=== PATIENT | female | born 1965 | race Caucasian/White ===

== ENCOUNTER → 2017-04-28 | Day surgery (SDC) | payer OTHER ==
[~2017-04-28] MED LIST: ACETAMINOPHEN 1000 MG/100 ML 100 ML IV ONE; ATENOLOL50 MG PO; BACITRACIN 50,000 UNIT VIAL ONE; BACLOFEN10 MG PO; CEFAZOLIN SOD 1 GM VIAL ONE; CITALOPRAM HBR20 MG PO; DEXAMETHASONE SOD PHOS INJ 4 MG/ML VIAL ONE; EPHEDRINE SULFATE INJ 50 MG/10 ML SYR ONE; FENTANYL CITRATE/PF 100MCG/2 ML INJ ONE; GABAPENTIN100 MG PO; GABAPENTIN300 MG PO; HYDROCHLOROTHIA25 MG PO; KEFLEX500 MG PO; KETOROLAC TROMETHAMINE 30 MG/ML VIAL ONE; LEVOTHYROXINE100 MC1 PO; LIDOCAINE HCL 2% LOCAL INJ 5 ML SDV VIAL INJ ONE; MIDAZOLAM HCL 2 MG/2 ML VIAL ONE; MIRTAZAPINE15 MG PO; ONDANSETRON HCL INJ 2 MG/ML VIAL ONE; PROPOFOL IV EMULSION 10 MG/ML 20 ML VIAL ONE; SEVOFLURANE INHAL SOLN 250 ML PEN BTL ONE; SODIUM CHLORIDE 0.9% 250ML 250 ML ONE; TYLENOL WITH C1 EACH PO
--- NOTE | 2017-04-29 09:19 | Operative Report ---
DATE OF PROCEDURE: April 28, 2017 PREOPERATIVE DIAGNOSES 1. Bilateral breast cancer. 2. Implant displacement and disproportion of reconstructed breast, left side. 3. Staged reconstruction of right breast, status post latissimus dorsi muscle flap reconstruction. POSTOPERATIVE DIAGNOSES 1. Bilateral breast cancer. 2. Implant displacement and disproportion of reconstructed breast, left side. 3. Staged reconstruction of right breast, status post latissimus dorsi muscle flap reconstruction. PROCEDURES 1. Delayed placement of right breast tissue flitch hanger with allograft. 2. Open capsulectomy, left breast with placement of allograft and implant exchange, and revision of reconstructed left breast. ANESTHESIA: General. 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 Several years ago, she underwent bilateral mastectomies with attempt at reconstruction. Her postoperative course was complicated and protracted, and resulted in almost complete absence of the right soft tissues over the chest wall, and unsatisfactory reconstruction of the left breast. The patient approximately 6 months ago underwent reconstruction of the soft tissue of the right breast utilizing a pedicled latissimus dorsi flap from the skin island. The patient has healed satisfactorily, and now presents for placement of a tissue flitch hanger in order to achieve optimal symmetry. In addition, the left breast has significant contour deformities consistent with capsular contracture and implant displacement. The risks, benefits and alternatives of treatment were discussed with the patient. She is prepared to undergo the procedures outlined. DETAILS OF PROCEDURE: The patient was marked preoperatively in the holding area. She was brought to the operating theater, and after the induction of adequate general anesthesia, she was prepped and draped in a supine position. A Wall catheter was placed. Mini compression boots were placed. A time out was performed. The procedure was begun by incising along the inferior border of the skin island from the latissimus dorsi flap on the right side and extending it medially on to her original mastectomy scar. The incision was then deepened through the subcutaneous tissues using the electrocautery. At this point, the latissimus dorsi muscle was identified, and the lower border of it was transected utilizing the electrocautery. This gave access to what would have been subpectoral space. The chest wall was identified. At this point, release of the internal structures to enlarge the pocket was performed utilizing the electrocautery. Hemostasis was made absolute using the electrocautery. Once the latissimus dorsi flap had been elevated sufficiently off the chest wall to allow placement of the allograft and tissue flitch hanger, a trial fit with sizers was performed, and a 250 mL sizer fit without significant tension. The sizer was removed and the pocket was irrigated and checked for hemostasis once again. The allograft was a 3-D scaffolding premolded type material, and it was oriented correctly in the lower hemisphere of the right chest. Using the suture tabs, it was secured to the chest wall using 2-0 PDS in an interrupted horizontal mattress fashion. At this point, a 400 mL moderate height tissue flitch hanger was prepared per display screen fabricator's specification. The lot number and serial number of flitch hanger are located in the patient's chart. At this point, the flitch hanger was oriented correctly after removing all the air, and then placed within the allograft scaffolding and into the breast pocket. Using direct vision, a 21-gauge infusion needle was placed through the port, and 250 mL of sterile injectable saline was added to the flitch hanger. At this point, the pocket was irrigated with antibiotic containing solution. The soft tissue layers were closed as follows: The inferior border of the latissimus muscle was brought over the flitch hanger and sutured to the superior rim of the allograft utilizing 2-0 PDS in an interrupted horizontal mattress fashion. The deep dermis was approximated with 3-0 Monocryl in an interrupted buried fashion. The skin was approximated with 4-0 running subcuticular Monocryl. Attention was then turned to the reconstruction of the left breast. The previous mastectomy and reconstructive incision was marked out. The incision was then made through the skin and subcutaneous tissues. All bleeding was controlled using electrocautery. The soft tissues were noted to be very, very thin with no significant subcutaneous tissue, and no apparent deep muscular tissue. The incision then gave way through the capsule, and the implant was identified. It was noted that the implant pocket was quite large, and the implant was displaced along the lateral chest wall. The implant was removed. It was noted to be a 400 mL gel filled implant. This was removed and sent for ID only. At this point, the pocket was noted to be quite contracted medially and quite extensive laterally. Capsulectomy was performed in an open fashion utilizing the electrocautery in order to allow the pocket to be moved more medially and more in line with an anatomic appearing breast. Once the capsule had been removed medially and superiorly, hemostasis was made absolute using the electrocautery. At this point, it was felt that the lateral pocket should be closed off to prevent the lateral displacement of the implant. This was performed utilizing interrupted 2-0 PDS sutures from the inside of the flap to the lateral chest wall. At this point, the 3-D formed allograft was prepared per display screen fabricator's specification. It was placed in the lower hemispheric portion of the left breast pocket. It was oriented properly and then the suture tabs were secured to the chest wall utilizing 2-0 PDS in an interrupted horizontal mattress fashion. A new 400 mL moderate high profile gel filled implant was prepared per display screen fabricator's specifications. The lot number and serial number located within the patient's chart. The pocket was irrigated with antibiotic containing solution and then dilute Betadine solution. The implant was then placed within the 3-D scaffolding allograft and noted to lie medially and without significant lateral displacement. The superior portion of the remaining capsule was then sutured to the allograft utilizing 2-0 PDS in an interrupted fashion. At this point, the skin and subcutaneous tissues were closed over the capsule and allograft utilizing 3-0 Monocryl in an interrupted buried fashion followed by 4-0 Monocryl running subcuticular fashion. Steri-Strips were applied to the incisions. The estimated blood loss for the procedure was approximately 75-100 mL for the total procedure. Sterile dressings were applied. The patient was placed in a postoperative gently compressing type bra, which maintained both the flitch hanger and the implant in their medial and inferior locations. The patient was returned to recovery in satisfactory condition, and then discharged with a postoperative instruction sheet, as well as a followup appointment. Job#: [id number] REENA
== END | disposition home or self-care (01) ==
LOC: OR 05:43
PROVIDERS: ATTEND Plastic Surgery
DX: C50.912 Malignant neoplasm of unspecified site of left female breast (principal); C50.911 Malignant neoplasm of unspecified site of right female breast; T85.42XA Displacement of breast prosthesis and implant, initial encounter; N65.1 Disproportion of reconstructed breast; I10 Essential (primary) hypertension; Q96.9 Turner's syndrome, unspecified; R00.1 Bradycardia, unspecified; Z01.810 Encounter for preprocedural cardiovascular examination
CPT/HCPCS: 15777; 19340; 19357; 19371; 93005; 99070; C1789; J0690; J1100; J1885; J2001; J2250; J2405; J7050

== ENCOUNTER → 2017-06-28 | Day surgery (SDC) | payer OTHER ==
[2017-06-27 15:26] LABS: ANION GAP 13.1 mmol/L (8-16); BLOOD UREA NITROGEN 19 mg/dL (7-26); BUN/CREATININE RATIO 26 (6-25); CALCIUM 9.5 mg/dL (8.4-10.2); CARBON DIOXIDE 29 mmol/L (22-29); CHLORIDE 99 mmol/L (98-107); CREATININE, SERUM 0.73 mg/dL (0.57-1.11); EST GLOMERULAR FILTRATION RATE > 60 ML/MIN (60-); GLUCOSE 93 mg/dL (74-118); POTASSIUM 3.1 mmol/L (3.5-5.1); SODIUM 138 mmol/L (136-145)
[~2017-06-28] MED LIST changes: -FENTANYL CITRATE/PF 100MCG/2 ML INJ ONE; -KETOROLAC TROMETHAMINE 30 MG/ML VIAL ONE; +MIRTAZAPINE15 M1 PO; +MUPIROCIN 2% OINT 22 GM TUBE ONE; -SODIUM CHLORIDE 0.9% 250ML 250 ML ONE
--- NOTE | 2017-06-28 12:34 | Operative Report ---
DATE OF PROCEDURE: June 28, 2017 PREOPERATIVE DIAGNOSES 1. History of malignant neoplasm, right breast. 2. Acquired absence, right breast and nipple. 3. Staged reconstruction of right breast. 4. Capsular contracture, right breast. POSTOPERATIVE DIAGNOSES 1. History of malignant neoplasm, right breast. 2. Acquired absence, right breast and nipple. 3. Staged reconstruction of right breast. 4. Capsular contracture, right breast. PROCEDURES 1. Removal of right breast tissue dehydrator operator. 2. Open periprosthetic capsulectomy, right breast. 3. Delayed insertion of permanent prosthesis, right breast. ANESTHESIA: General. HISTORY: The patient is a 52-year-old female who has a personal history of malignant neoplasm of the right breast and has had staged reconstruction of the right breast. Most recently, she underwent placement of allograft and a tissue dehydrator operator. After expansion of the tissue dehydrator operator, the patient now presents for removal of the right breast tissue dehydrator operator and placement of the permanent prosthesis. The risks, benefits and alternatives of treatment were discussed with the patient, and she is prepared to undergo the procedures outlined. DETAILS OF PROCEDURE: Patient had signed the [employer] consent form for the aforementioned procedure. She was marked preoperatively in the holding area in the upright position. She was brought to the operating theater. After the induction of adequate general anesthesia, she was prepped and draped in a supine position and a time out was performed. The procedure was begun by marking out the superior border of the latissimus dorsi skin island flap and extending that both medially and laterally. The incision was then made through the skin and subcutaneous tissues. All bleeding was controlled using electrocautery. The previous surgical incision was excised through the skin and subcutaneous tissue, and it was removed. Using electrocautery, the incision was deepened through the subcutaneous tissue until the latissimus muscle was identified. The junction between the latissimus muscle and the allograft was identified, and this was using the electrocautery. Immediately underneath this layer, a tissue dehydrator operator was identified. There was some folding of the tissue dehydrator operator, and this has caused significant capsular contracture in the superior hemispheric portion of the right breast reconstruction. The interval between the allograft and the latissimus was divided further both medially and laterally. Then the dehydrator operator was removed without difficulty. The pocket was inspected. There were no signs of purulence and no signs of any devitalized material. The procedure was begun by using electrocautery and excising the contracted portion of the capsule which had formed in the superior hemisphere of the right breast reconstruction. The incisions were made through the capsule into the latissimus dorsi muscle, and then the contracted portions of the capsule were then removed in their entirety. The wound was irrigated with bacteriostatic saline, and hemostasis was made absolute using electrocautery. At this point, a 250-mL sizer was placed in the right breast pocket, and the patient was then sat up and assessed. The symmetry between the right and left sides was noted to be satisfactory and the 250-mL sizer adequately corrected the patient's need for reconstruction and symmetry. Patient was made supine. The sizer was then removed, and the pocket was inspected once again for hemostasis, which was made absolute using electrocautery. The pocket was then irrigated with an antibiotic-containing solution, and then this was followed by a Betadine-containing solution. The 250-mL implant was prepared per director of strategic sourcing's specifications. Lot number and serial number are located within the patient's chart. The implant was placed in the right breast pocket, and the interval between the latissimus muscle and the allograft was then closed using 3-0 Monocryl in an interrupted fashion. At this point, the deep dermis was approximated with 4-0 Monocryl in an interrupted buried fashion, and finally the epidermis was closed using 5-0 Monocryl running subcuticular stitch. Steri-Strips were applied to the incision. Dressings were applied over the Steri-Strips. The patient was placed in a postoperative gently compressing surgical bra. The estimated blood loss for the procedure was approximately 50 mL. She tolerated the procedure well. She was brought to the recovery room in satisfactory condition and discharged with a postoperative instruction sheet as well as a followup appointment. Job#: [id number]
== END | disposition home or self-care (01) ==
LOC: OR 07:20
PROVIDERS: ATTEND Plastic Surgery
CPT/HCPCS: 36415; 80048; J0690; J1100; J2001; J2250; J2405

== ENCOUNTER → 2018-05-12 | Outpatient (CLI) | payer MEDICARE ==
[~2018-05-12] MED LIST changes: -ACETAMINOPHEN 1000 MG/100 ML 100 ML IV ONE; -BACITRACIN 50,000 UNIT VIAL ONE; -CEFAZOLIN SOD 1 GM VIAL ONE; -DEXAMETHASONE SOD PHOS INJ 4 MG/ML VIAL ONE; -EPHEDRINE SULFATE INJ 50 MG/10 ML SYR ONE; +FENOFIBRATE145 MG PO; -LIDOCAINE HCL 2% LOCAL INJ 5 ML SDV VIAL INJ ONE; -MIDAZOLAM HCL 2 MG/2 ML VIAL ONE; -MUPIROCIN 2% OINT 22 GM TUBE ONE; -ONDANSETRON HCL INJ 2 MG/ML VIAL ONE; -PROPOFOL IV EMULSION 10 MG/ML 20 ML VIAL ONE; -SEVOFLURANE INHAL SOLN 250 ML PEN BTL ONE
== END ==
LOC: CARD 09:54
PROVIDERS: ATTEND Family Medicine
DX: R09.89 Other specified symptoms and signs involving the circulatory and respiratory systems (principal)
CPT/HCPCS: 93880; 93925

== ENCOUNTER → 2019-03-23 | Outpatient (CLI) | payer MEDICARE ==
--- NOTE | 2019-03-23 11:19 | Diagnostic Imaging Report ---
Exam: Bone mineral density study. History: 54-year-old female. Comparison: None Discussion: Evaluation of the left hip and lumbar spine was performed utilizing DEXA Hologic bone densitometer. The study is technically adequate. The patient's fracture risk is compared to an age-matched control. Left femoral neck bone mineral density: 0.557 g/cm2, T-score is -2.6, Z-score is -1.7. No previous comparison. Lumbar spine total bone mineral density: 0.831 gm/cm2, T-score is -2, Z-score is -1. No previous comparison. Impression: Bone mineralization by WHO Classification using T score is osteoporosis, fracture risk is high. <T score: NL = -1 or higher Osteopenia = -1 to -2.5 Osteoporosis = -2.5 or lower Z score: < - 1.5 concerning for path> Recommendations: Medical evaluation for secondary causes of low bone mineral density may be appropriate. Correlate clinically for the necessity and timing of the next bone mineral density study. National Osteoporosis Foundation recommendations: Initiate therapy to reduce fracture risk in postmenopausal women with -BMD t-scores below -2 by central DXA with no risk factors -BMD t-scores below -1.5 by central DXA with one or more risk factors (first deg relative with hip fracture, prior personal fracture, low body weight, smoking) -A prior vertebral or hip fracture AACE (Clinical Endocrinology) recommends treating the following: Postmenopausal women who have osteoporosis as diagnosed by fragility fractures or t scores -2.5 or below Postmenopausal women who have risk factors (including fh of hip fracture, low body weight, smoking, risk of falling, high bone turnover, advancing age) and borderline low BMD T scores of -1.5 or below Adequate intake of calcium (at least 1200mg/day) and vitamin D (400-800 IU/day). Regular weight bearing and muscle - strengthening exercises Avoid smoking and excessive alcohol Signed by: Patricio Pitts on 03/23/2019 11:16 AM
== END ==
LOC: DX 09:37
PROVIDERS: ATTEND Family Medicine
DX: Z13.820 Encounter for screening for osteoporosis (principal)
CPT/HCPCS: 77080

== ENCOUNTER 2019-06-08 15:50 | Emergency (ER) | payer MEDICARE ==
[~2019-06-08] VITALS: Ht 144.8 cm; Wt 61.2 kg
--- NOTE | 2019-06-08 17:34 | Diagnostic Imaging Report ---
EXAMINATION: CHEST SINGLE (PORTABLE) INDICATION: ^Y ^ERMD ORDER ^[id number] ^1715 ^Y COMPARISON: 10/14/2017 FINDINGS: AP view TUBES and LINES: None. LUNGS: Lungs are well inflated. There is no evidence of pneumonia or pulmonary edema. PLEURA: No pleural effusion or pneumothorax. HEART AND MEDIASTINUM: The cardiomediastinal silhouette is unremarkable. BONES AND SOFT TISSUES: No acute osseous lesion. Thoracolumbar scoliosis. Suspected bilateral breast implants. UPPER ABDOMEN: No free air under the diaphragm. IMPRESSION: No acute thoracic abnormality. Signed by: Dr. Barry Hillman MD on 06/08/2019 5:31 PM
--- OUTSIDE RECORDS SUMMARY | 2019-06-08 17:51 | XMS REPORT | Summary of Care ---
Author Author [facility] Organization [facility] Address Unknown Phone Unavailable Care Team Providers Care Dump Worker Name Role Phone Edgar Corona Andre PCP Reason for Visit * Reason Comments Procedure Encounter Details Care Team Description Date Type Department Criselda Maria PA-C [address] [facility] [address] [place], [place] [id number] Procedure 10/17/2018 Office Visit [facility] Plastic Surgery [address] [facility] [place] [address] Allergies No Known Allergiesdocumented as of this encounter (statuses as of 10/17/2018) Medications End Date Status Medication Sig Dispensed Refills Start Date Active diphenoxylate-atropine Take 5 mL by 0 (LOMOTIL) 2.5-0.025 mouth 4 times MG/5ML liquid daily as needed. Active atenolol (TENORMIN) 25 MG Take 25 mg by 0 tablet mouth daily. Active pentoxifylline (TRENTAL) Take 400 mg 0 400 MG CR tablet by mouth 3 times daily (with meals). Active Baclofen (LIORESAL) 10 by 0 MG/5ML injection Intrathecal route once. Active Levothyroxine Sodium 100 Take by 0 MCG CAPS mouth. Active mirtazapine (REMERON) 15 Take 15 mg by 0 MG tablet mouth nightly. Active amoxicillin (AMOXIL) 875 Take 875 mg 0 MG tablet by mouth two times daily. Active Potassium Chloride 10 Inject into 0 MEQ/5ML SOSY the vein. Active fenofibrate (LOFIBRA) 160 Take 160 mg 0 MG tablet by mouth daily. Active mometasone (ELOCON) 0.1 % Apply 0 cream topically daily. Active doxycycline (VIBRAMYCIN) Take 100 mg 0 100 MG capsule by mouth two times daily. Active gabapentin (NEURONTIN) Take 300 mg 0 300 MG capsule by mouth 3 times daily. Active gabapentin (NEURONTIN) Take 100 mg 0 100 MG capsule by mouth 3 times daily. Active hydrochlorothiazide Take 50 mg by 0 (HYDRODIURIL) 50 MG mouth daily. tablet Active fenofibrate micronized Take 134 mg 0 (LOFIBRA) 134 MG capsule by mouth every morning (before breakfast). Active acetaminophen-codeine Take 1 Tab by 0 (TYLENOL #3) 300-30 MG mouth every 4 per tablet hours as needed for Pain. Active citalopram (CELEXA) 20 MG Take 20 mg by 0 tablet mouth daily. Active atenolol (TENORMIN) 50 MG Take 50 mg by 0 tablet mouth daily. Active hydrocodone-acetaminophen Take 1 Tab by 0 (NORCO) 5-325 mg tablet mouth every 4 hours as needed for Pain. Active Clotrimazole 1 % CREA Place 0 vaginally. Active Baclofen (LIORESAL) 10 by 0 MG/20ML injection Intrathecal route once. Active cephALEXin (KEFLEX) 500 Take 500 mg 0 MG capsule by mouth four times daily. Active sulfamethoxazole-trimetho Take 1 Tab by 0 prim (BACTRIM DS, SEPTRA mouth two DS) 800-160 MG per tablet times daily. Active Permethrin-Nit Remover by 0 (NIX COMPLETE LICE COMBINATION TREATMENT) 1 & 0.25 % KIT route. documented as of this encounter (statuses as of 10/17/2018) Active Problems No known active problemsdocumented as of this encounter (statuses as of 10/17/2018) Social History Date Tobacco Use Types Packs/Day Years Used Never Smoker Smokeless Tobacco: Never Used Drinks/Week oz/Week Comments Alcohol Use Never Alcohol Habits Answer Date Recorded How often do you have a drink containing alcohol? Never 09/11/2018 How many drinks containing alcohol do you have on Not asked a typical day when you are drinking? How often do you have six or more drinks on one Not asked occasion? Sex Assigned at Date Recorded Not on file Industry Job Start Date Occupation Not on file Not on file Not on file Travel End Travel History Travel Start No recent travel history available. documented as of this encounter Last Filed Vital Signs Reading Time Taken Comments Vital Sign 98/65 10/17/2018 11:14 AM CDT Blood Pressure 62 10/17/2018 11:14 AM CDT Pulse - - Temperature - - Respiratory Rate - - Oxygen Saturation - - Inhaled Oxygen Concentration 49.9 kg (110 lb) 10/17/2018 11:14 AM CDT Weight 144.8 cm (4' 9") 10/17/2018 11:14 AM CDT Height 23.8 10/17/2018 11:14 AM CDT Body Mass Index documented in this encounter Progress Notes * Criselda Maria PA-C - 10/17/2018 11:00 AM CDT Kalani Morrison Moon 53 y.o. who presents for psot surgical follow up. She under went bilateral nipple reconstruction and R breast revision, implant exchange Wit h Dr Elkins on 09/25/18. She has been doing well. She states that she is very h appy with her results. She would like to have nipple tattoos done. Her mother deyanira you noticed a rash on her back. She denies any pain or itching in area of rash. ROS CONSTITUTIONAL: negative CARDIOVASCULAR: positive for none RESPIRATORY: negative GASTROINTESTINAL: negative bilateral nipples healing, R breast incision intact: no erythema or s/s infectio n noted Quarter sized erythematous area medial to R back incision with some overlying cr ust Plan: Nipple protector at all times when wearing bra to help preserve projection Ok for tattoo in 3 months Call clinic with questions or concerns Use eczema cream on rash to see if it improves Seen with Dr Elkins I appreciate the opportunity to be involved in the care of this patient. Criselda Maria PA-C documented in this encounter Plan of Treatment Care Team Description Date Type Specialty Colin Elkins MD [address] [place] [address] [phone] 10/23/2018 Office Visit Plastic Surgery Criselda Maria PA-C [address] [place] [address] [phone] 12/20/2018 Office Visit Plastic Surgery Health Maintenance Due Date Last Done Comments COLON CANCER SCREENIN1966 COLONOSCOPY MAMMOGRAM ANNUAL 1966 MEDICARE AWV 1966 TETANUS SHOT (ADULT) 1981 HIV SCREENING 02/04/1984 CERVICAL CANCER SCREENING 1987 3 YEAR FOLLOW UP FLU VACCINE > 6 MONTHS 09/14/2018 documented as of this encounter Results Not on filedocumented in this encounter Visit Diagnoses Diagnosis Malignant neoplasm of female breast, unspecified estrogen receptor status, unspecified laterality, unspecified site of breast - Primary documented in this encounter Insurance Type Payer Benefit Subscriber ID Effective Phone Address Plan / Dates Group Medicare [employer] MED[employer]ARE xxxxxxxx 2018-P [id number] [place] [address] documented as of this encounter
--- OUTSIDE RECORDS SUMMARY | 2019-06-08 17:51 | XMS REPORT | Summary of Care ---
Author Author [facility] Address Unknown Phone Unavailable Care Team Providers Care Plastics Nurse Name Role Phone Cj Edgar Powell PCP Reason for Visit * Reason Comments Procedure Tattoo * Outpatient Surgery (Routine) Referred By Contact Referred To Contact Status Reason Specialty Diagnoses / Procedures Criselda Maria PA-C [address] [facility] [address] [place] [address] Criselda Maria PA-C [facility] [address] [place] [address] Closed Plastic Surgery Diagnoses Malignant neoplasm of unspecified site of unspecified female breast Tattoo P rocedures [place] CORRECT SKIN COLR DEFCT ADDN 20SQ CM TATTOO 30 Encounter Details Care Team Description Date Type Department Criselda Maria PA-C [address] [facility] [address] [place] [address] [phone] Procedure (Tattoo) 12/20/2018 Office Visit [facility] [address] [facility] [address] [place] [phone] Allergies No Known Allergiesdocumented as of this encounter (statuses as of 12/20/2018) Medications End Date Status Medication Sig Dispensed [...] capsule by mouth four times daily. Active Permethrin-Nit Remover by 0 (NIX COMPLETE LICE COMBINATION TREATMENT) 1 & 0.25 % KIT route. 12/20/2018 Discontinued sulfamethoxazole-trimetho Take 1 Tab by 0 prim (BACTRIM DS, SEPTRA mouth two DS) 800-160 MG per tablet times daily. documented as of this encounter (statuses as of 12/20/2018) Active Problems No known active problemsdocumented as of this encounter (statuses as of 12/20/2018) Social History Date Tobacco Use Types Packs/Day [...] Signs Reading Time Taken Comments Vital Sign 87/46 12/20/2018 11:26 AM [employer]SCHOOL Blood Pressure 59 12/20/2018 11:26 AM [employer]SCHOOL Pulse - - Temperature - - Respiratory Rate - - Oxygen Saturation - - Inhaled Oxygen Concentration 49.9 kg (110 lb) 12/20/2018 11:26 AM AFTERSCHOOL Weight 144.8 cm (4' 9") 12/20/2018 11:26 AM AFTERSCHOOL Height 23.8 12/20/2018 11:26 AM AFTERSCHOOL Body Mass Index documented in this encounter Progress Notes * Criselda Maria PA-C - 12/20/2018 11:00 AM AFTERSCHOOL Ms. Kalani Trivedi is a 53 y.o. female who previously underwent Bilateral implant breast reconstruction. Her nipple reconstruction was done on 09/25/18. She now presents for nipple-areolar complex micropigmentation. Consent: The risks and benefits of the procedure were discussed in detail inclu ding pain, bleeding, infection, scarring, asymmetry, color mismatch, fading of c olor, and need for further procedures. The patient understood, signed the conse nt, and wished to proceed. Procedure: Bilateral NAC Micropigmentation; 16 cm bilaterally Local Anesthesia:9 cc of 1% lidocaine with epinephrine Pigment Color: Flesh 6 (x2), Flesh 10 mixed for areola, Medium brown for shadow PE: The patient's scars are well-healed, the implants are intact. The pigment colors were offered to the patient and compared to her skin tone. T ogether with the patient, pigment color was chosen. At this time, the markings for the new areolae were drawn based upon the size, shape and location preferenc e of the patient - 4 cm x 4 cm bilaterally. The patient was given a mirror to e valuate the markings; once she agreed, the micropigmentation procedure began. M icropigmentation was performed in the standard fashion without complications. T he patient was provided a mirror throughout the procedure to evaluate the size a nd shape of the areola; at the end of the procedure the patient was happy with t he results. The areas were dressed with adaptic, bacitracin and 4x4s. Post-procedure instructions were given: 1. Apply antibiotic ointment to the area twice a day for seven days. 2. For the first 5 days, or until a scab has formed, Do not scrub, wash with soa p, or allow a hard shower stream to fall on the treated area. Simply allow water to run over it gently and gently pat dry with a soft towel. 3. Do not pick the scab loose, this will remove the pigmentation. 4. To avoid irritation from bras or undergarments, continue to apply the dressin g until the area is completely healed. 5. You may resume normal activities. However, avoid activities that may cause ru bbing or friction to the treated area. Follow-up for second-stage micropigmentation in 6 weeks. CPT Code(s):73122 and 92241 RSCHOOL documented in this encounter Plan of Treatment Care Team Description Date Type Specialty Criselda Maria PA-C [address] [facility] [address] [place] [address] [phone] 01/31/2019 Office Visit Plastic Surgery Health Maintenance Due [...] status, unspecified laterality, unspecified site of breast (HCCode) - Primary documented in this encounter Insurance Type Payer Benefit Subscriber ID Effective Phone Address Plan / Dates Group Medicare [employer] MEDICARE xxxxxxxx 2018-P [address] HMO resent [id number] [place] [address] documented as of this encounter
--- OUTSIDE RECORDS SUMMARY | 2019-06-08 17:51 | XMS REPORT | Summary of Care ---
Author Author [facility] Organization [facility] Address Unknown Phone Unavailable Care Team Providers Care Pasteuriser Operator Name Role Phone CjEdgar decker Andre PCP Reason for Visit * Reason Comments Procedure Tattoo * Outpatient Surgery (Routine) Referred By Contact Referred To Contact Status Reason Specialty Diagnoses / Procedures Colin Elkins MD [address] [facility] [address] [place] [address] Criselda Maria PA-C [address] [facility] [address] [place] [address] Authorization Plastic Surgery Diagnoses Not Needed Malignant neoplasm of unspecified site of unspecified female breast 2nd Tattoo 2nd Tattoo 2nd Tattoo 2nd Tattoo 2nd Tattoo P rocedures [place] CORRECT SKIN COLR DEFCT ADDN 20SQ CM TATTOO 30 Encounter Details Care Team Description Date Type Department Criselda Maria PA-C [address] [facility] [address] [place] [address] [phone] Procedure (Tattoo) 04/11/2019 Office Visit [facility] Surgery [address] [facility] [address] [place] [phone] Allergies No Known Allergiesdocumented as of this encounter (statuses as of 04/11/2019) Medications End Date Status Medication Sig Dispensed [...] as of this encounter (statuses as of 04/11/2019) Active Problems No known active problemsdocumented as of this encounter (statuses as of 04/11/2019) Social History Date Tobacco Use Types Packs/Day [...] Reading Time Taken Comments Vital Sign 98/65 04/11/2019 3:07 PM ATTORNEY Blood Pressure 63 04/11/2019 3:07 PM ATTORNEY Pulse - - Temperature - - Respiratory Rate - - Oxygen Saturation - - Inhaled Oxygen Concentration 49.9 kg (110 lb) 04/11/2019 3:07 PM ATTORNEY Weight 144.8 cm (4' 9") 04/11/2019 3:07 PM ATTORNEY Height 23.8 04/11/2019 3:07 PM ATTORNEY Body Mass Index documented in this encounter Progress Notes * Criselda Maria PA-C - 04/11/2019 3:00 PM ATTORNEY Ms. Kalani Trivedi is a 54 y.o. female who previously underwent Bilateral implant [...] Bilateral NAC Micropigmentation; 16 cm bilaterally Local Anesthesia:8 cc of 1% lidocaine with epinephrine Pigment Color: Flesh 6, Flesh 9 mixed for areola, Medium brown for shadow PE: The patient's scars are well-healed, the implants are intact. She wanted her tattoos to be bigger and slightly darker than they were. The colo r was adjusted from Flesh 10 to Flesh 9 and only 1 Flesh 6. At this time, the ma rkings for the new areolae were drawn based upon the size, shape and location pr eference of the patient - 4.5 cm x 4.5 cm bilaterally. The patient was given a mirror to evaluate the markings; once she agreed, the micropigmentation procedur e began. Micropigmentation was performed in the standard fashion without compli cations. The patient was provided a mirror throughout the procedure to evaluate the size and shape of the areola; at the end of the procedure the patient was h appy with the results. The areas were dressed with adaptic, bacitracin and 4x4s . Post-procedure instructions were given: 1. Apply antibiotic [...] friction to the treated area. Follow-up for touch up tattoo DAMION and Dr. Elkins in 3 months CPT Code(s):65249 and 37571 RNEY documented in this encounter Plan of Treatment Health Maintenance Due Date Last Done Comments COLON CANCER SCREENIN1966 COLONOSCOPY MAMMOGRAM ANNUAL 1966 TETANUS SHOT (ADULT) 1981 HIV SCREENING 02/04/1984 CERVICAL CANCER SCREENING 1987 3 YEAR FOLLOW UP MEDICARE AWV (Initial) 04/14/2016 FLU VACCINE > 6 MONTHS 09/14/2018 documented [...] [employer] MEDICARE xxxxxxxx 2018-P [address] O resent [id number] - [employer] [place] [address] documented as of this encounter
--- OUTSIDE RECORDS SUMMARY | 2019-06-08 17:51 | XMS REPORT | Summary of Care ---
Author Author [facility] Organization [facility] Address Unknown Phone Unavailable Care Team Providers Care Veterinary Nurse Name Role Phone Edgar Corona Andre PCP Reason for Visit * Reason Comments Post-op Follow-up Encounter Details Care Team Description Date Type Department Colin Elkins MD [address] [facility] [address] [place] [address] [phone] Post-op Follow-up 09/11/2018 Office Visit [facility] Department of Surgery [address] [facility], [facility] [address] [place] [phone] Allergies No Known Allergiesdocumented as of this encounter (statuses as of 09/24/2018) Medications End Date Status Medication Sig Dispensed [...] as of this encounter (statuses as of 09/24/2018) Active Problems Not on filedocumented as of this encounter (statuses as of 09/24/2018) Social History Date Tobacco Use Types Packs/Day [...] Signs Reading Time Taken Comments Vital Sign 93/57 09/11/2018 8:04 AM CDT Blood Pressure 64 09/11/2018 8:04 AM CDT Pulse - - Temperature - - Respiratory Rate - - Oxygen Saturation - - Inhaled Oxygen Concentration 49.9 kg (110 lb) 09/11/2018 8:04 AM CDT Weight 144.8 cm (4' 9") 09/11/2018 8:04 AM CDT Height 23.8 09/11/2018 8:04 AM CDT Body Mass Index documented in this encounter Progress Notes * Colin Elkins MD - 09/11/2018 8:00 AM CDT Subjective: 53F wheelchair bound nonsmoker with history of breast cancer. She underwent laine ateral mastectomy and immediate breast reconstruction with implants. She did no t have chemo or radiotherapy. She had a right breast implant loss due to infect ion. She subsequently underwent an LD flap with replacement of the implant in 2 018 (implant was 250cc smooth round moderate plus). She states that her left br east is larger than the right, however she prefers the size of the implant on th e left. She presents today to discuss her upcoming surgery ROS CONSTITUTIONAL: negative CARDIOVASCULAR: positive for none RESPIRATORY: negative GASTROINTESTINAL: negative Objective: Vital Signs Height: 4' 9" (144.8 cm) Weight - Scale: 110 lb (49.9 kg) Pulse: 64 BP: 93/57 BREASTS: Bilateral skin sparing mastectomies with implant based breast reconstruction, le ft breast is larger than right, previous bilateral nipple reconstruction with si gnificant loss of projection LYMPH NODE BASINS: No lymphadenopathy Assessment: 52F nonsmoker s/p nilateral skin sparing mastectomies and breast reconstruction with right LD with implant and left implant. She prefers the size of the left b reast and desires the right side to match the left. She is also interested in r evision of bilateral nipple reconstruction. Operative plan for implant exchange of right breast implant for larger size to match left implant, as well as bilat eral nipple reconstruction Plan: 1. Operative for implant exchange of right breast implant for larger size to ma tch left implant, as well as bilateral nipple reconstruction. Surgery scheduled for September 25. 2. Risks, benefits and alternatives of the procedure discussed including but no t limited to infection, bleeding, seroma, flap loss, loss of nipple projection, capsular contracture, implant loss, fat necrosis, wound healing complications, a symmetry, scarring (both normal and pathologic), deformity, poor aesthetic resul t, need for revisional surgery, ALCL, sensory loss, functional loss, implant rup ture, injury to adjacent structures, loss of projection, flap loss. Informed con sent obtained. I spent a total of 15 minutes of face -to-face time with the patient in this enc ounter of which greater than 50% was spent in direct counseling, including antic ipated results, possible complications and postoperative recovery. Colin Elkins MD MSc FACS Attending Physician Plastic Surgery [facility] documented in this encounter Plan of Treatment Care Team Description Date Type Specialty Colin Elkins MD [address] [facility] [address] [place] [address] [phone] 09/25/2018 Affiliate Plastic Surgery Service Colin Elkins MD [address] [facility] [address] [place] [address] 10/23/2018 Office Visit Plastic Surgery Health Maintenance Due [...] xxxxxxxx 2018-P [address] HMO resent [phone] - [place] [address] Medicare AET MEDICARE xxxxxxxx 2018-8 [address] H[address] [id number] [place] [address] documented as of this encounter
--- OUTSIDE RECORDS SUMMARY | 2019-06-08 17:51 | XMS REPORT | Summary of Care ---
Author Author [facility] Organization [facility] Address Unknown Phone Unavailable Care Team Providers Care Job Coach Name Role Phone CjEdgar decker Andre PCP Reason for Visit * Reason Comments Post-op Follow-up Encounter Details Care Team Description Date Type Department Zuleika Reese AG-LIZ [address] [facility] [address] [place] [address] Post-op Follow-up 10/02/2018 Office Visit [facility] [address] [place] [phone] Allergies No Known Allergiesdocumented as of this encounter (statuses as of 10/02/2018) Medications End Date Status Medication Sig Dispensed [...] as of this encounter (statuses as of 10/02/2018) Active Problems Not on filedocumented as of this encounter (statuses as of 10/02/2018) Social History Date Tobacco Use Types Packs/Day [...] Signs Reading Time Taken Comments Vital Sign 89/60 10/02/2018 11:13 AM CDT Blood Pressure 69 10/02/2018 11:13 AM CDT Pulse - - Temperature - - Respiratory Rate - - Oxygen Saturation - - Inhaled Oxygen Concentration 49.9 kg (110 lb) 10/02/2018 11:13 AM CDT Weight 144.8 cm (4' 9") 10/02/2018 11:13 AM CDT Height 23.8 10/02/2018 11:13 AM CDT Body Mass Index documented in this encounter Progress Notes * Zuleika Reese AG-ACNP - 10/02/2018 11:30 AM CDT Kalani Morrison [place] 53 y.o. who presents for psot surgical follow up: [place]ONSTRU[place] SUR[place]SU[place] REM[place] OF BREAST CAPSULE [place] DELAY BREAST PROS AFTER BREAST SURG [place] NIPPLE/AREOLA RECONSTRUCTION [place] REMOVAL OF BREAST IMPLANT REVISION,BREAST RECONSTRUCTION CAPSULOTOMY,BREAST CAPSULECTOMY,BREAST RECONSTRUCTION,BREAST 2ND STAGE RECONSTRUCTION,NIPPLE REMOVAL,BREAST IMPLANT W/RE-IMPLANT With Dr Elkins on 09/25/18 ROS CONSTITUTIONAL: negative CARDIOVASCULAR: positive for none RESPIRATORY: negative GASTROINTESTINAL: negative Physical Exam: Normal physical exam including SIGNAL OPERATOR, CV, Resp, GI and Ext bilateral nipples healing, R breast incision intact: no erythema or s/s infectio n noted Plan: May stop po antibiotics Keep nipples padded/protected No bra recommended X 1 more week Ok to shower/ no bath May have nipple tattooing in 3 months if no issues F/U in [address] Severo Reese MS OVER THE HORIZON TARGETING SUPERVISOR Nurse Practitioner [facility] Department of Plastic and Reconstructive Surgery documented in this encounter Plan of Treatment Care Team Description Date Type Specialty Zuleika Reese AG-ACNP [address] [facility] [address] [place] [address] 10/17/2018 Office Visit Plastic Surgery Colin Elkins MD [facility] [address] [place] [address] 10/23/2018 Office Visit Plastic Surgery Health Maintenance [...] xxxxxxxx 2018-P [address] HMO resent [phone] [place] [address] documented as of this encounter
== END 2019-06-08 18:00 | disposition home or self-care (01) ==
LOC: ER 15:50
DX: R50.9 Fever, unspecified (principal); R05 Cough; R11.2 Nausea with vomiting, unspecified; R10.9 Unspecified abdominal pain; R19.7 Diarrhea, unspecified; J40 Bronchitis, not specified as acute or chronic; I10 Essential (primary) hypertension; E78.5 Hyperlipidemia, unspecified; E03.9 Hypothyroidism, unspecified; F41.9 Anxiety disorder, unspecified; Q96.9 Turner's syndrome, unspecified
CPT/HCPCS: 71045; 99283